=== PATIENT | female | born 1955 | race Caucasian/White ===

== ENCOUNTER → 2022-11-24 | Outpatient (CLI) | payer MEDICARE, OTHER, SELFPAY ==
--- NOTE | 2022-11-24 10:38 | EKG12_ITS ---
Test Reason : PRE OP Blood Pressure : / mmHG Vent. Rate : 086 BPM Atrial Rate : 086 BPM P-R Int : 176 ms QRS Dur : 078 ms QT Int : 358 ms P-R-T Axes : 058 -15 036 degrees QTc Int : 428 ms Normal sinus rhythm Possible Left atrial enlargement Low voltage QRS Nonspecific T wave abnormality Abnormal ECG Confirmed by BRISEIDA PARISI ([id number]), design editor BETTIE JUDGE ([id number]) on 11/30/2022 1:52:11 PM Referred By: Juan R Perez Confirmed By:BRISEIDA PARISI
[2022-11-24 11:38] LABS: Hematocrit 51.1 % (37-47); Hemoglobin 16.6 g/dL (12.0-15.0); Mean Corp Hgb Conc 32.5 g/dL (32-36); Mean Corpuscular Hgb 31.6 pg (27.0-32.0); Mean Corpuscular Volume 97.3 fL (81-99); Mean Platelet Vol. 12.2 fl (6.2-12.0); Platelet Count 236 K/mm3 (150-450); RBC Distribution Width CV 11.9 % (11.6-14.6); RBC Distribution Width SD 43.1 fl (35.1-43.9); Red Blood Count 5.25 M/mm3 (4.2-5.4); White Blood Count 7.4 K/mm3 (4.4-11.0)
[2022-11-24 12:02] LABS: Anion Gap 4 (5-15); BUN 20 mg/dL (7-18); BUN/Creat Ratio 25.1 RATIO (10-20); Calcium,Total 9.8 mg/dL (8.5-10.1); Chloride 105 mmol/L (98-107); EST Glomerular Filtration Rate 76 mL/min (>60); Est Glom Filt Rate - Afr Amer 92 mL/min (>60); Glucose 110 mg/dL (74-106); Sodium Level 139 mmol/L (136-145)
== END | disposition home or self-care (01) ==
LOC: PSN 10:35
PROVIDERS: PCP Family Medicine; Referring Provider Otolaryngology; Visit Provider Otolaryngology
DX: Z01.818 Encounter for other preprocedural examination (principal)
CPT/HCPCS: 36415; 80048; 85027; 93005

== ENCOUNTER → 2022-12-07 | Outpatient (CLI) | payer MEDICARE, OTHER, SELFPAY ==
--- NOTE | 2022-12-07 | MASS_PTH ---
PATIENT: MIKE NOVOA LOC: [facility] U#:[id number] AGE/SX: 67/F ROOM: RE12/07/[address]: Dr. Juan R Perez MD : [id number] BED: DIS: 12/07/2022 SPEC #: [id number] RECD: 12/08/22 07:45 STATUS: JOANN MILLER #: [id number] EDWAR: 12/07/22 00:[address]: Juan R Perez DEPT: SURGICAL PATHOLOGY RECD BY: Newton Jordan ENTERED: 12/08/22 07:50 SP TYPE: Mass OTHR DR: Dr. Shadi Webb MD [facility] Tissues: Ear, NOS Procedures: Surgery Specimen Level III Comments: @ Specimen number changed from [id number] to [id number] @ on 12/08/22 at 1335 by RGOOD. HEADER OPERATION: Excision right ear canal mass PRE-OP DIAGNOSIS: Other benign neoplasm of skin of right ear and external articular canal, acute serous otitis media TISSUE SUBMITTED: Right ear canal mass MICROSCOPIC DIAGNOSIS Right ear canal mass, excision: Consistent with cholesteatoma. SUNNY:ida 12/09/2022 MICROSCOPIC DESCRIPTION Slides are reviewed. GROSS DESCRIPTION Received in fixative is one container labeled with the patient's name and designated right ear canal mass. The specimen consists of multiple irregular fragments of elliott-white soft tissue that in aggregate measure 1.0 x 0.8 x 0.2 cm. The specimen is totally submitted in one cassette. / Josh 12/08/2022 TC:5 CPT: 04458
== END | disposition home or self-care (01) ==
LOC: LABSPEC 15:28
PROVIDERS: PCP Family Medicine; Referring Provider Otolaryngology; Visit Provider Otolaryngology
DX: D23.21 Other benign neoplasm of skin of right ear and external auricular canal (principal); H65.02 Acute serous otitis media, left ear
CPT/HCPCS: 88304